=== PATIENT | female | born 1990 | race Caucasian/White ===

== ENCOUNTER 2017-07-27 14:18 | Emergency (ER) | payer OTHER ==
[2017-07-27 14:25] VITALS: BP 134/84
[2017-07-27 15:50] LABS: BASO % 0 % (0-3); EOS % 1 % (0-3); HEMATOCRIT 37.3 % (36.0-47.0); HEMOGLOBIN 12.9 g/dL (12.0-15.5); LYMPH # 2.6 x10^3/uL (1.0-4.8); LYMPH % 26 % (24-48); MEAN CORPUSCULAR HEMOGLOBIN 29 pg (25-35); MEAN CORPUSCULAR HGB CONC 35 g/dL (31-37); MEAN CORPUSCULAR VOLUME 84 fL (79-100); MONO # 0.6 x10^3/uL (0.0-1.1); MONO % 6 % (0-9); NEUT # 6.9 x10^3uL (1.8-7.7); NEUT % 67 % (31-73); PLATELET COUNT 396 x10^3/uL (140-400); RED BLOOD COUNT 4.46 x10^6/uL (3.50-5.40); WHITE BLOOD COUNT 10.2 x10^3/uL (4.0-11.0)
--- NOTE | 2017-07-27 16:21 | RAD ---
OB <14 WKS W/TV Clinical Indication: vaginal bleeding in Comparison: None. TECHNIQUE: Real-time ultrasound imaging of the pelvis using transabdominal and transvaginal window is performed. Findings: Cervix length is approximately 3.8 cm. There is intrauterine gestational sac. Contour is smooth, no perigestational hemorrhage. Internally a yolk sac and pole are identified. Vayas-rump length 1.6 cm, 8 weeks and 0 days. Estimated heart rate 160 bpm. Sonographic EDC is March 08, 2018. The maternal ovaries are symmetric in size and demonstrate normal blood flow. IMPRESSION: Single live intrauterine gestation, estimated sonographic gestational age 8 weeks and 0 days. Electronically signed by: Harjit Rosario MD (07/27/2017 4:18 PM) [facility] [place]
[2017-07-27] MEDS ORDERED: PYRI25TA3 PO (16:47)
--- NOTE | 2017-07-27 16:47 | PHYS DOC ---
Adult General Chief Complaint Chief Complaint: VAGINAL BLEEDING [facility] HPI Patient is a 26 year old F who presents with vaginal bleeding and right lower abdominal cramping. She states that she did have a home test was positive. She denies any exacerbating or alleviating factors. She states that she is having normal bowel movements and no changes to her urinary habits. She has no other associated symptoms. Review of Systems Review of Systems Constitutional: Denies fever or chills [] Eyes: Denies change in visual acuity, redness, or eye pain [] HENT: Denies nasal congestion or sore throat [] Respiratory: Denies cough or shortness of breath [] Cardiovascular: No additional information not addressed in HPI [] GI: Denies vomiting, bloody stools or diarrhea [] : Denies dysuria or hematuria [] Musculoskeletal: Denies back pain or joint pain [] Integument: Denies rash or skin lesions [] Neurologic: Denies headache, focal weakness or sensory changes [] Endocrine: Denies polyuria or polydipsia [] All other systems were reviewed and found to be within normal limits, except as documented in this note. Family History Family History No pertinent family medical history was reported Current Medications Current Medications Medications reviewed Allergies Allergies Allergies Coded Allergies Type Severity Reaction Last Updated Verified cephalexin Allergy Unknown 07/27/17 Yes Physical Exam Physical Exam Constitutional: Well developed, well nourished, no acute distress, non-toxic appearance. [] HENT: Normocephalic, atraumatic, bilateral external ears normal, oropharynx moist, no oral exudates, nose normal. [] Eyes: PERRLA, EOMI, conjunctiva normal, no discharge. [] Neck: Normal range of motion, no tenderness, supple, no stridor. [] Cardiovascular:Heart rate regular rhythm, no murmur [] Lungs & Thorax: Bilateral breath sounds clear to auscultation [] Abdomen: Bowel sounds normal, soft, no masses, no pulsatile masses. [] Mild tenderness in the right lower quadrant Skin: Warm, dry, no erythema, no rash. [] Extremities: No tenderness, no cyanosis, no clubbing, ROM intact, no edema. [] Neurologic: Alert and oriented X 3, normal motor function, normal sensory function, no focal deficits noted. [] Psychologic: Affect normal, judgement normal, mood normal. [] Current Patient Data Vital Signs Vital Signs Date Time Temp Pulse Resp B/P (MAP) Pulse Ox O2 Delivery O2 Flow Rate FiO2 07/27/17 14:25 98.3 80 16 98 Room Air Lab Results Laboratory Tests Test 07/27/17 14:57 White Blood Count 10.2 x10^3/uL (4.0-11.0) Red Blood Count 4.46 x10^6/uL (3.50-5.40) Hemoglobin 12.9 g/dL (12.0-15.5) Hematocrit 37.3 % (36.0-47.0) Mean Corpuscular Volume 84 fL (79-100) Mean Corpuscular Hemoglobin 29 pg (25-35) Mean Corpuscular Hemoglobin Concent 35 g/dL (31-37) Red Cell Distribution Width 14.0 % (11.5-14.5) Platelet Count 396 x10^3/uL (140-400) Neutrophils (%) (Auto) 67 % (31-73) Lymphocytes (%) (Auto) 26 % (24-48) Monocytes (%) (Auto) 6 % (0-9) Eosinophils (%) (Auto) 1 % (0-3) Basophils (%) (Auto) 0 % (0-3) Neutrophils # (Auto) 6.9 x10^3uL (1.8-7.7) Lymphocytes # (Auto) 2.6 x10^3/uL (1.0-4.8) Monocytes # (Auto) 0.6 x10^3/uL (0.0-1.1) Eosinophils # (Auto) 0.0 x10^3/uL (0.0-0.7) Basophils # (Auto) 0.0 x10^3/uL (0.0-0.2) Maternal Serum HCG Beta Subunit 984638 mIU/mL (0-6) H EKG EKG [] Radiology/Procedures Radiology/Procedures Ultrasound OB - intrauterine at 8 weeks gestation Course & Med Decision Making Course & Med Decision Making Pertinent Labs and Imaging studies reviewed. (See chart for details) [] Dragon Disclaimer Dragon Disclaimer This electronic medical record was generated, in whole or in part, using a voice recognition dictation system. Departure Departure: Impression: Primary Impression: Vaginal bleeding before 22 weeks gestation Disposition: 01 HOME, SELF-CARE Condition: STABLE Referrals: TERRI,BONNY A MD (PCP) Patient Instructions: Abdominal Pain During Additional Instructions: Sun was seen in the emergency department for vaginal bleeding and abdominal pain. No emergency medical condition was found on history or physical exam. She did have normal labs and imaging that showed a normal at 8 weeks. She was encouraged take vitamins. She was also advised to establish care with an OB as soon as possible for further management. Scripts Pyridoxine Hcl (PYRIDOXINE HCL) 25 Mg Tablet 25 MG PO TID Y for NAUSEA for 7 Days, #21 TAB Prov: FRANCIS MORGAN MD 07/27/17 FRANCIS MORGAN MD Jul 27, 2017 16:47
[2017-07-27 17:03] LABS: BACTERIA,URINE 0 /HPF (0-FEW); BILIRUBIN,URINE NEG (NEG); CLARITY,URINE CLEAR; COLOR,URINE YELLOW; GLUCOSE,URINE NEG (NEG); NITRITE,URINE NEG (NEG); SQUAMOUS EPITHELIAL CELL,UR OCC /LPF; UROBILINOGEN,URINE 0.2 mg/dL (0.2 mg/dL); WBC,URINE OCC /HPF (0-4)
== END 2017-07-27 17:28 | disposition home or self-care (01) ==
LOC: ER 14:18
DX: O46.92 Antepartum hemorrhage, unspecified, second trimester (principal); Z3A.22 22 weeks gestation of pregnancy; Z88.1 Allergy status to other antibiotic agents
CPT/HCPCS: 36415; 76801; 76817; 81001; 84702; 85025; 86900; 86901; 99285-25